=== PATIENT | male | born 1980 | race Caucasian/White ===

== ENCOUNTER 2025-06-16 01:59 | Day surgery (SDC) | payer BC, SELFPAY ==
[2025-06-15 14:01] VITALS: BMI 35.2
--- OUTSIDE RECORDS SUMMARY | 2025-06-16 02:01 | XMS_ITS | Clinical Summary ---
Author Organization [facility] Address [address] [place] [address] Care Team Providers Care Sales And Marketing Assistant Name Role Phone Unavailable Primary Care Provider Unavailabl e Social History Tobacco Use Types Packs/Day Years Used Date Smoking Tobacco: Never Assessed Sex and Gender Information Value Date Recorded Sex Assigned at Not on file Legal Sex Male 8:12 PM CDT Gender Identity Not on file Sexual Orientation Not on file Plan of Treatment Health Maintenance Due Date Last Done Comments Annual Physical 1984 Hepatitis C 09/22/1999 DTaP, Tdap and Td Vaccines ( 1 - Tdap) 2000 Hepatitis B Vaccines (1 of 3 - 19+ 3-dose series) 2000 HPV Vaccines (1 - 3-dose SCD M series) 2008 COVID-19 Vaccine ( - 2024-2 6 season) 2025 Influenza Adult (#1) 2025 Hepatitis A Vaccines Aged Out No long er eligible based on patient's age to complete this topic Meningococcal B Vaccine Aged Out No l onger eligible based on patient's age to complete this topic Meningococcal Vaccine Aged Out No howard bi eligible based on patient's age to complete this topic Pneumococcal Vaccine: Pediat rics (0 to 5 Years) and At-Risk Patients (6 to 49 Years) Aged Out No longer eligible b ased on patient's age to complete this topic RSV Immunizations Under 20 Months Aged Out No longer eligible based on patient's age to complete this topic
[2025-06-16 12:21] VITALS: BP 144/97; PULSE 75; RESP 20; TEMP 36.1; O2SAT 98; BMI 36.3
[2025-06-16] MEDS: LACTATED RINGERS 1,000 ML 150 ML IV CONT (12:39)
--- NOTE | 2025-06-16 13:27 | P.PNAN_ITS ---
Anes - Initial Pre Proc Eval Procedure: Operation Date: 06/16/25 13:30 Proposed Procedures p Esophagogastroduodenoscopy - Lj Tabares MD Date/Time: 06/16/25 13:27 Surgeon: Lj Tabares MD Pre Op Diagnosis: Gastro-esophageal reflux disease without esophagit Patient Data Age: 44 Gender: M Height: 1.83 m Weight: 121.7 kg Last Vital Signs Temp 97 F L 06/16/25 12:21 Pulse 75 06/16/25 12:21 Resp 20 06/16/25 12:21 BP 144/97 H 06/16/25 12:21 Pulse Ox 98 06/16/25 12:21 O2 Del Method Room Air 06/16/25 12:21 Allergies Allergy/AdvReac Type Severity Reaction Status Date / Time No Known Allergies Allergy Verified 06/16/25 12:19 Home Medications ?Medication ?Instructions ?Recorded ?Confirmed ?Type multivitamin 1 tablet PO DAILY 03/16/23 1 08/17/24 History loratadine 10 mg tablet (Claritin) 10 mg PO DAILY 04/0106/16/25 History omeprazole 20 mg capsule,delayed 20 mg PO BID #60 caps 05/27/25 06/16/25 Rx release Patient hx anesthesia problems: none Family hx anesthesia problems: none Results Review: All pre-operative results and documents have been reviewed as part of the pre- operative evaluation. [facility] Past Medical History Medical History Acute sinusitis Headache Allergies Family History Family History Father Hypertension Mother Lymphoma Grandparent Pancreatic cancer Hypertension Heart disease Grandparent Cerebrovascular accident Social History Social History Smoking status: Never smoker Alcohol intake: never Substance use: never Substance use type: does not use Lack of Transportation: No Lack of Food: Never True Current Housing: I Have Housing Concerned About Future Housing: No Difficulty Paying Gas/Electric Bills: No Difficulty Paying for Meds: No Currently Unemployed: No Education: Bachelor's Degree Difficulty w/ Childcare or Family Care: No Living arrangements: with family Occupation/Education: occupation 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 BMI 36, GERD, active can walk on a treadmill, no cp or sob. Informed Consent: The patient's anesthetic plan and its attendant risks and benefits were discussed with the patient/family/POA. Questions were solicited and answers provided to the satisfaction of the patient/family/POA.
--- NOTE | 2025-06-16 13:30 | P.HP_ITS ---
History of Present Illness History of Present Illness Consent: Risks, benefits, and alternatives have been discussed and questions answered. Patient agrees to proceed with procedure. Chief complaint: Gastro-esophageal reflux disease without esophagit Narrative: Darek Desai is a 44 year old male here for first EGD, h/o GERD on omeprazole bid but still symptomatic Review of Systems Review of Systems: All systems reviewed & are unremarkable except as noted in HPI and below PMFSH Past Medical History Medical History (Updated 06/16/25 @ 13:30 by Lj Tabares MD) GERD (gastroesophageal reflux disease) Acute sinusitis Headache Allergies Family History Family History Father Hypertension Mother Lymphoma Grandparent Pancreatic cancer Hypertension Heart disease Grandparent Cerebrovascular accident Social History Social History Smoking status: Never smoker Alcohol intake: never Substance use: never Substance use type: does not use Lack of Transportation: No Lack of Food: Never True Current Housing: I Have Housing Concerned About Future Housing: No Difficulty Paying Gas/Electric Bills: No Difficulty Paying for Meds: No Currently Unemployed: No Education: Bachelor's Degree Difficulty w/ Childcare or Family Care: No Living arrangements: with family Occupation/Education: occupation 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): Male Spiritual care concerns: No Agree to blood products: Yes Meds Home Medications and Allergies Home Medications ?Medication ?Instructions ?Recorded ?Confirmed ?Type multivitamin 1 tablet PO DAILY 03/16/23 1 08/17/24 History loratadine 10 mg tablet (Claritin) 10 mg PO DAILY 04/0106/16/25 History omeprazole 20 mg capsule,delayed 20 mg PO BID #60 caps 05/27/25 06/16/25 Rx release Allergies Allergy/AdvReac Type Severity Reaction Status Date / Time No Known Allergies Allergy Verified 06/16/25 12:19 Vital Signs Vital Signs - 24 hr 06/16/25 12:21 Temperature 97 F L Pulse Rate 75 Respiratory Rate 20 Blood Pressure 144/97 H Pulse Oximetry 98 Oxygen Delivery Room Air Exam Const: General: comfortable and no acute distress HENMT: Face/Nose/Sinus: Normal nares present Eyes: General: appearance normal, both eyes and all related structures Neck: Neck: no JVD Resp: Auscultation: clear to auscultation bilaterally Cardio: Rate: regular rate Rhythm: regular rhythm GI: Inspection: non-distended GI Palp: Yes Soft to palpation Skin: General skin exam: normal color Extrem: General: normal to inspection Psych: Mental Status: mental status grossly normal Assessment and Plan Assessment and plan (1) GERD (gastroesophageal reflux disease): Code(s): K21.9 - Gastro-esophageal reflux disease without esophagitis Status: Acute Assessment and Plan: egd with bx already on ppi
--- NOTE | 2025-06-16 13:42 | S_PTH ---
PATIENT: Darek Desai LOC: [facility] Maciel#:[id number] AGE/SX: 44/M ROOM: RE06/16/[address]: Lj Tabares MD : 1980 BED: DIS: 06/16/2025 SPEC #: [id number] RECD: 06/16/25 13:45 STATUS: KRISH REQ #: [id number] RACHELLE: 06/16/25 13:[address]: Lj Tabares DEPT: [facility] Surgical RECD BY: Kimmy Mendieta ENTERED: 06/16/25 13:46 SP TYPE: Surgical OTHR DR: Christie Lara, SARAH Tissues: A - Esophageal Biopsy B - Gastric Biopsy Procedures: Hematoxylin and Eosin Stain Gross and Microscopic Level 4
[2025-06-16 13:48] VITALS: BP 130/81; PULSE 63; RESP 14; O2SAT 99
[2025-06-16 13:58] VITALS: BP 139/79; PULSE 64; RESP 14; O2SAT 100
[2025-06-16 14:08] VITALS: BP 123/80; PULSE 66; RESP 21; O2SAT 99
== END 2025-06-16 14:23 | disposition home or self-care (01) ==
PROVIDERS: PCP Nurse Practitioner Family; Referring Provider Nurse Practitioner Family; Visit Provider Internal Medicine Gastroenterology
PROC: 0DJ08ZZ Inspection of Upper Intestinal Tract, Via Natural or Artificial Opening Endoscopic (ICD-10-PCS; CPT 43239; principal; 2025-06-16 13:30)
DX: K21.9 Gastro-esophageal reflux disease without esophagitis (principal); E66.9 Obesity, unspecified; Z68.36 Body mass index [BMI] 36.0-36.9, adult
CPT/HCPCS: 43239; 88305; J2003; J2704; J7120

== ENCOUNTER 2025-06-22 07:16 | Outpatient (CLI) | payer BC, SELFPAY ==
--- NOTE | ~2025-06-22 | US_ITS ---
ULTRASOUND ABDOMEN LIMITED (RIGHT UPPER QUADRANT) Clinical History: R10.11 - Right upper quadrant pain Comparison: None Technique: Right upper quadrant sonography Findings: Liver: Normal size. Echogenic. No intrahepatic biliary ductal dilatation. Normal hepatopedal flow main portal vein. Common Duct: Normal caliber. 3 mm. Gallbladder: No stones. No wall thickening. No pericholecystic fluid. Pancreas: Obscured by bowel gas. Right kidney: Unremarkable. Retrohepatic IVC: Unremarkable. IMPRESSION: 1. No acute findings. Reviewed, dictated and finalized at location R. SOMNOGRAPH TECH IMPRESSION: 1. No acute findings.
--- OUTSIDE RECORDS SUMMARY | 2025-06-22 07:18 | XMS_ITS | Clinical Summary ---
Author Organization [facility] Address [facility] [place] [address] Care Team Providers Care Optometric Tech Name Role Phone Unavailable Primary Care Provider [...]
== END 2025-06-22 07:17 | disposition home or self-care (01) ==
PROVIDERS: PCP Nurse Practitioner Family; Visit Provider Nurse Practitioner Family
DX: R10.11 Right upper quadrant pain (principal)
CPT/HCPCS: 76705